=== PATIENT | female | born 1980 | race African-American/Black ===

== ENCOUNTER → 2020-01-28 07:03 | Outpatient (CLI) | payer OTHER, SELFPAY ==
--- NOTE | ~2020-01-28 | MM_ITS ---
EXAMINATION: MM screening [facility] BI w nicole HISTORY: Screening mammogram TECHNIQUE: Craniocaudal and mediolateral oblique 3-D tomosynthesis images were obtained and synthetic 2-D images were generated. CAD analysis was submitted and interpreted. COMPARISON: Comparison to multiple prior studies sequentially, with oldest reviewed study dated 09/11. BREAST PARENCHYMAL COMPOSITION: The breasts are heterogeneously dense, which may obscure small masses . FINDINGS: There is no evidence of suspicious mass, calcification, or architectural distortion to sugg est malignancy in either breast. There has been no suspicious interval change. IMPRESSION: 1. No mammographic evidence of malignancy. 2. Recommend routine screening mammography in one year. BI-RADS Category 1: Negative Reviewed, dictated and finalized at location A.
== END ==
PROVIDERS: PCP Family Medicine; Visit Provider Nurse Practitioner
DX: Z12.31 Encounter for screening mammogram for malignant neoplasm of breast (principal)
CPT/HCPCS: 77063; 77067

== ENCOUNTER 2020-06-02 06:36 | Outpatient (CLI) | payer OTHER, SELFPAY ==
--- NOTE | ~2020-06-02 | CT_ITS ---
EXAMINATION: CT abdomen w con DATE: 06/02/2020 07:13 INDICATION: Painful right sided abdominal lump for one year. History of hernia repair. TECHNIQUE: Computed tomography (CT) of the abdomen was performed without intravenous contrast. Automa brian exposure control and iterative reconstruction technique were employed. Exam dose: 503.98 mGy-cm total exam DLP. COMPARISON: 04/05/2017 CT abdomen pelvis FINDINGS: The lung bases are clear. Heart size is within normal limits. There is no pericardial or pl eural effusion. The gallbladder is evacuated. No bile duct or pancreatic duct dilatation. No hepatic, pancreatic, spl enic, and adrenal or renal space-occupying mass lesion is detected. Approximately 3.5 mm calculus of the mid to lower right kidney. No other urinary tract calculus or hy droureteronephrosis is evident. Normal caliber of the abdominal aorta. Probable bilateral fallopian tube ligation. Normal appendix. There is a prominent amount of fecal material in the colon. Occasional colonic diver ticula; no CT evidence of diverticulitis. No bowel obstruction, bowel wall thickening, pneumatosis or intraperitoneal free air. Incompletely included in the lowermost images is a fat-containing right lower quadrant anterolateral Spigelian hernia, the defect measuring up to 1.4 cm width. There is sclerosis at the sacroiliac joints. No suspicious osteolytic or osteoblastic lesions are not ed. IMPRESSION: Fat-containing right lower abdominal wall Spigelian hernia Nonobstructing 3.5 mm mid to lower right renal calculus Reviewed, dictated and finalized at Location A. Reviewed, dictated and finalized at location B.
== END 2020-06-02 06:37 | disposition home or self-care (01) ==
LOC: ANHIMG 06:42
PROVIDERS: PCP Family Medicine; Visit Provider Physician Assistant
DX: K43.9 Ventral hernia without obstruction or gangrene (principal); N20.0 Calculus of kidney
CPT/HCPCS: 74160; Q9967

== ENCOUNTER 2020-06-24 08:41 | Outpatient (CLI) | payer OTHER, SELFPAY | END 2020-06-24 08:42 | disposition home or self-care (01) | PROVIDERS: PCP Family Medicine; Visit Provider Surgery | DX: K43.9 Ventral hernia without obstruction or gangrene (principal) | CPT/HCPCS: 36415; 86850; 86900; 86901 ==

== ENCOUNTER 2020-07-04 00:24 | Outpatient (CLI) | payer OTHER, SELFPAY ==
[2020-07-04 19:34] LABS: SARS-CoV-2 RNA PCR Negative
== END 2020-07-04 00:25 | disposition home or self-care (01) ==
LOC: ANHCOVIDDT 00:25
PROVIDERS: PCP Family Medicine; Visit Provider Surgery
DX: K43.9 Ventral hernia without obstruction or gangrene (principal); Z01.812 Encounter for preprocedural laboratory examination; Z20.828 Contact with and (suspected) exposure to other viral communicable diseases
CPT/HCPCS: 87635; C9803; U0003

== ENCOUNTER 2020-07-06 02:12 | Day surgery (SDC) | payer OTHER, SELFPAY ==
[2020-06-20 13:14] VITALS: BMI 33.9
[2020-07-06] VITALS (9 sets, daily range): BP systolic 113–145; BP diastolic 62–96; PULSE 54–81; RESP 14–20; TEMP 36.6; O2SAT 94–100
[2020-07-06] MEDS: LACTATED RINGERS 1,000 ML 30 ML IV CONT ×2 (11:50→15:28)
[2020-07-06] MEDS: KETOROLAC 15 MG/ML VIAL (*BKC) IV PUSH (12:00)
[2020-07-06] MEDS: ACETAMINOPHEN 500 MG TABLET 1000 MG PO (12:00)
--- NOTE | 2020-07-06 12:07 | WPDANESEPPF ---
Anes - Initial Pre Proc Eval Procedure: Operation Date: 07/06/20 13:30 Proposed Procedures p Laparoscopic Right Spigelian Hernia Repair With Mesh, Davinci Assisted - Memo Louise DO Date/Time: 07/06/20 12:07 Surgeon: Memo Louise DO Pre Op Diagnosis: Right Spighelian Hernia Patient Data Age: 40 Gender: F Height: 5 ft 6 in Weight: 95.25 kg Allergies Allergy/AdvReac Type Severity Reaction Status Date / Time No Known Allergies Allergy Verified 06/09/20 15:12 Home Medications Medication Instructions Recorded Confirmed Type acetaminophen 500 mg tablet 500 mg PO Q6H PRN 06/08/20 06/20/20 History multivitamin,wv-jvjb-xlsjxcyg 1 tablet PO DAILY 06/08/20 06/20/20 History flaxseed oil 5 ml MISCELLANEOUS DAILY 06/20/20 06/20/20 History Patient hx anesthesia problems: none Family [facility] problems: [facility] Social History Social History Smoking status: Never smoker Second hand tobacco smoke exposure: Yes Alcohol intake: current Drinks per week: 1 Alcohol use details: pt stated maybe monthly Substance use: never Substance use type: does not use Living arrangements: with family Gender identity (if verbalized by the patient): Female Sexual Orientation (if Verbalized by the Patient): Straight or Heterosexual Spiritual care concerns: No Anes - Eval Final PreProcedure Day of Procedure 07/06/20 12:07 Patient weight: overweight Heart: regular rate and rhythm Lungs: clear to auscultation Airway: Mallampati scale class II Neurological: alert and oriented Last oral intake: >/= 8 hours ASA classification: II Emergent: no Anesthetic plan: proceed Anesthesia type and monitoring: general ETT and standard monitoring Informed Consent: The patient's anesthetic plan and its attendant risks and benefits were discussed with the patient/family/POA. Questions were solicited and answers provided to the satisfaction of the patient/family/POA.
--- NOTE | 2020-07-06 12:51 | PM.IMHP ---
H&P: HPI History of Present Illness Date/Time: 07/06/20 12:51 Chief complaint: Right Spighelian Hernia Narrative: Saniya Angelo is a 40 year old female who presents with a RLQ hernia. She denies any changes since last seen in the office. Review of Systems Review of Systems: All systems reviewed & are unremarkable except as noted in HPI and below Eyes: Eyes: Denies change in vision ENT: Denies hearing loss, Denies neck pain and Denies sore throat Cardiovascular: Cardiovascular: Denies chest pain and Denies dyspnea Respiratory: Respiratory: Denies cough, Denies dyspnea and Denies wheezing Gastrointestinal: Gastrointestinal: Reports as per HPI Genitourinary: Genitourinary: Denies hematuria and Denies dysuria Musculoskeletal: Musculoskeletal: Denies arthralgias, Denies joint swelling and Denies neck pain Allergic/Immunologic: Allergic/Immunologic: Denies wheezing PMFSH Past Medical History Medical History Hernia, umbilical 2013 following delivery of . Repaired with mesh. Kidney stone on right side Seasonal depression Surgical History Surgical History H/O tubal ligation (~2013) H/O umbilical hernia repair (~2013) with mesh. Family History Family History Mother Hypertension Family history of rheumatoid arthritis Family history of heart disease in male family member before age 55 Other Protein S deficiency Social History Social History Smoking status: Never smoker Second hand tobacco smoke exposure: Yes Alcohol intake: current Drinks per week: 1 Alcohol use details: pt stated maybe monthly Substance use: never Substance use type: does not use Living arrangements: with family Gender identity (if verbalized by the patient): Female Sexual Orientation (if Verbalized by the Patient): Straight or Heterosexual Spiritual care concerns: No Meds Home Medications and Allergies Home Medications Medication Instructions Recorded Confirmed Type acetaminophen 500 mg tablet 500 mg PO Q6H PRN 06/08/20 07/06/20 History multivitamin,aq-bwtt-yorqepob 1 tablet PO DAILY 06/08/20 07/06/20 History flaxseed oil 5 ml MISCELLANEOUS DAILY 06/20/20 07/06/20 History Allergies Allergy/AdvReac Type Severity Reaction Status Date / Time No Known Allergies Allergy Verified 07/06/20 12:24 Vital Signs Vital Signs - 24 hr 07/06/20 11:34 Temperature 36.6 C Pulse Rate 80 Respiratory Rate 16 Blood Pressure 113/62 Pulse Oximetry 94 Exam Const: General: alert; No acute distress Orientation/consciousness: patient oriented x3 Limitations: no limitations HENMT: Head: normocephalic and atraumatic Ears: hearing grossly normal bilaterally General nose exam: Normal external nose present and Normal nares present Mouth: Yes Normal oral and palatal mucosa present and Yes moist mucous membranes Eyes: General: appearance normal, both eyes and all related structures Conjunctivae: conjunctivae normal Sclera: sclerae normal Pupils: Equal, round and reactive pupils present EOM: EOMs intact bilaterally Neck: Neck: normal visual inspection, full ROM, no lymphadenopathy, supple and no JVD Lymphatic: no lymphadenopathy noted Chest: Chest palpation & inspection: normal inspection of the chest Resp: Effort & Inspection: normal respiratory effort and able to speak in complete sentences Auscultation: clear to auscultation bilaterally Percussion: percussion normal Cardio: Jugular venous distension: no JVD Rate: regular rate Rhythm: regular rhythm Heart sounds: S1 normal heart sound present and S2 normal heart sound present Peripheral pulses: Peripheral pulses 2+ throughout GI: Inspection: normal to inspection GI Palp: No abdominal tenderness, Yes Soft to palp
[2020-07-06] MEDS: ceFAZolin 2 GM/D5W 50 ML 2 GM/50 ML BAG IVPB (13:24)
--- NOTE | 2020-07-06 15:12 | PM.PROC ---
Procedure Note - Detailed Date of procedure: 07/06/20 Pre-op diagnosis: Right Spigelian Hernia Post-op diagnosis: same Procedure performed: Laparoscopic right Spigelian hernia repair with Progrip mesh, da George assisted Description of procedure: Procedure as well as risks, benefits, and alternatives were discussed with the patient. Written consent was obtained and placed in chart prior to procedure. Patient was brought back to surgical suite. She was placed supine on operating table. Time-out was done to confirm patient and procedure. She was then intubated by Anesthesia Department. Her abdomen was prepped and draped in sterile fashion using chlorhexidine prep. 0.5% bupivacaine with epinephrine was infiltrated at each location for incision. An 8 mm incision was made in the left lateral abdomen, and a 5 mm Optiview trocar was advanced through the abdominal layers under direct visualization. Once inside the abdominal cavity, carbon dioxide insufflation was used to create a pneumoperitoneum. A camera was inserted and the abdominal cavity was inspected. The patient was placed in slight Trendelenburg position. An 8 millimeter incision was made on the right upper abdomen and an 8 millimeter trocar was inserted under direct visualization. Another 8 millimeter incision was made in the left lower abdomen and an 8 millimeter trocar was inserted under direct visualization. There were some adhesions in the midline periumbilical region that were taken down using scissors with electrocautery. The adhesions appeared to involve omentum only. The 5 mm port was then removed and this was replaced with another 8 mm robotic port. The robotic arms were brought up to the patient's bedside and secured to the ports. The camera and instruments were inserted. I then moved over to the robotic console and took control of the camera and instruments. After careful inspection of the abdominal cavity, I began scoring the peritoneum along the Right lower quadrant using scissors with electrocautery. The preperitoneal plane was entered and this was carefully dissected caudally along the inferior epigastric vessels. I dissected far Duff medially to about midline and then continued this dissection along the preperitoneal plane laterally. I encountered the hernia defect and carefully reduced the hernia sac from within the hernia. I then further dissected the preperitoneal pocket far enough laterally to allow for the mesh placement. The hernia defect measured 3 cm by 2 cm. The fascia was reapproximated using an 0 strata Fix running absorbable suture. I chose a Pro Heavy Forging Machine Operator 15 cm x 10 cm mesh. I then placed the mesh within the preperitoneal pocket and carefully unfolded it. The mesh was oriented vertically. The mesh was centered on the hernia defect with adequate overlap circumferentially. The mesh appeared in proper position adequate overlap circumferentially. The peritoneum was then closed over the mesh using a 3-0 V-lock running absorbable suture. The robotic instruments were removed. The robotic arms were disengaged from the ports and moved away from the bedside. The patient was flattened out in bed, the ports were removed under direct visualization, and the pneumoperitoneum was released. The skin of the incisions was approximated using 4-0 Monocryl subcuticular suture, and Exofin glue was applied on top. The patient was awakened from anesthesia, extubated, and transferred to recovery. Implants: Progrip Mesh 10cm x 15cm Anesthesia: GETA and local ( Exparel) Surgeon: Memo Louise DO Estimated blood loss (mL): 5 Drains: No Packing: No Pathology: none sent Complications: No immediate complications Condition: stable Disposition: same day Findings: Saniya is a 40 y/o female who presents with a RLQ abdominal hernia. She reports experiencing pain that is worse with walking and working out. She first noticed this about 1 year ago. She states laying down or taking OTC Tylenol helps
[2020-07-06] MEDS: ONDANSETRON INJ 4 MG/2 ML VIAL IV PUSH (16:53)
== END 2020-07-06 17:49 | disposition home or self-care (01) ==
PROVIDERS: PCP Family Medicine; Visit Provider Surgery
PROC: (CPT 49652; principal; 2020-07-06 13:30)
DX: K43.9 Ventral hernia without obstruction or gangrene (principal)
CPT/HCPCS: 49652; A9270; C1781; C9290; J0690; J1100; J1885; J2250; J2405; J2704; J2710; J3010; J7030; J7120

== ENCOUNTER → 2021-11-14 12:43 | Outpatient (CLI) | payer OTHER, SELFPAY ==
--- NOTE | ~2021-11-14 | MM_ITS ---
EXAMINATION: MM screening [facility] BI w nicole HISTORY: Screening mammogram TECHNIQUE: Craniocaudal and mediolateral oblique 3-D tomosynthesis images were obtained and synthetic 2-D images were generated. CAD analysis was submitted and interpreted. COMPARISON: 01/28/2020, 09/20/2018, 09/27/2017 BREAST PARENCHYMAL COMPOSITION: The breasts are heterogeneously dense, which may obscure small masses . FINDINGS: There is no evidence of suspicious mass, calcification, or architectural distortion to sugg est malignancy in either breast. There has been no suspicious interval change. IMPRESSION: 1. No mammographic evidence of malignancy. 2. Recommend routine screening mammography in one year. BI-RADS Category 1: Negative Reviewed, dictated and finalized at location A. 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
== END ==
PROVIDERS: PCP Family Medicine; Visit Provider Nurse Practitioner
DX: Z12.31 Encounter for screening mammogram for malignant neoplasm of breast (principal)
CPT/HCPCS: 77063; 77067

== ENCOUNTER → 2023-12-24 12:24 | Outpatient (CLI) | payer OTHER, SELFPAY ==
--- NOTE | ~2023-12-24 | MM_ITS ---
EXAMINATION: MM screening [facility] BI w nicole HISTORY: Screening mammogram TECHNIQUE: Craniocaudal and mediolateral oblique 3-D tomosynthesis images were obtained and synthetic 2-D images were generated. CAD analysis was submitted and interpreted. COMPARISON: 11/14/2021, 01/28/2020, 09/20/2018 BREAST PARENCHYMAL COMPOSITION: The breasts are heterogeneously dense, which may obscure small masses . FINDINGS: No suspicious mass, calcification, or architectural distortion are identified in either abdoulaye ast to suggest malignancy. There has been no suspicious interval change. IMPRESSION: 1. No mammographic evidence of malignancy. 2. Recommend routine screening mammography in one year. BI-RADS Category 1: Negative Reviewed, dictated and finalized at location A. 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
== END ==
PROVIDERS: PCP Obstetrics & Gynecology Gynecology; Visit Provider Obstetrics & Gynecology Gynecology
DX: Z12.31 Encounter for screening mammogram for malignant neoplasm of breast (principal)
CPT/HCPCS: 77063; 77067